=== PATIENT | female | born 1960 | race Asian ===

== ENCOUNTER 2016-09-09 18:49 | Emergency (ER) | payer OTHER ==
[~2016-09-09] VITALS: Ht 162.6 cm; Wt 67.8 kg
[2016-09-09] MEDS ORDERED: DIPH,PERTUSS(ACELL),TET VAC/PF 0.5 ML IM-VACC ONE ×2 (19:14→19:30)
[2016-09-09] MEDS ORDERED: LIDOCAINE 1%, 20ML ONE (19:14)
[2016-09-09] MEDS ORDERED: LIDOCAINE 1%, 10ML INFIL ONE (19:30)
[2016-09-09] MEDS ORDERED: BACITRACIN ZINC OINT 500U/GM, 0.9 GM ONE (20:05)
[2016-09-09 20:26] VITALS: BP 114/66
== END 2016-09-09 20:29 | disposition home or self-care (01) ==
LOC: ED 20:15
DX: S61.217A Laceration without foreign body of left little finger without damage to nail, initial encounter (principal); W25.XXXA Contact with sharp glass, initial encounter; Y93.89 Activity, other specified; Y99.8 Other external cause status; Y92.009 Unspecified place in unspecified non-institutional (private) residence as the place of occurrence of the external cause
CPT/HCPCS: 12001; 90471; 90715